=== PATIENT | female | born 1955 | race African-American/Black ===

== ENCOUNTER 2016-04-13 09:59 | Emergency (ER) | payer MEDICAID ==
[~2016-04-13 09:59] MED LIST: ASPI81 PO; GABA400 PO; IBUP800T23 PO; METH750T2 PO; METO25 PO; NITR.4 SL
[2016-04-13 10:08] VITALS: BP 163/100; PULSE 89; RESP 14; TEMP 97.8; O2SAT 100
[2016-04-13] MEDS ORDERED: KETOROLAC TROMETHAMINE 60 MG/2 ML (IM) VIAL IM ONE (13:00)
--- NOTE | 2016-04-13 13:58 | PD ---
HPI Chief Complaint: Chest Pain Time Seen by Provider: 12:32 Travel History International Travel<30 days: No Contact w/Intl Traveler<30days: No Traveled to known affect area: No History of Present Illness HPI The patient was seen and examined in the presence of the nurse. This patient complains of some pain in her chest wall. She aggravated it while pulling a couch. No shortness of breath or fever. Symptoms severity is mild. PFSH Past Medical History Arthritis: No Asthma: Yes Autoimmune Disease: No Blood Disorders: No Anxiety: Yes Depression: No Heart Rhythm Problems: No Cancer: No Cardiac Catheterization: Yes (2006) Cardiovascular Problems: Yes High Cholesterol: Yes Chemotherapy: No Chest Pain: Yes Congestive Heart Failure: No COPD: No Cerebrovascular Accident: No Coronary Artery Disease: Yes Diabetes: No Diminished Hearing: No Endocrine: No Gastrointestinal Disorders: Yes GERD: No Glaucoma: No Genitourinary: No Headaches: Yes Hepatitis: No Hiatal Hernia: No Hypertension: Yes Immune Disorder: No Kidney Stones: No Musculoskeletal: No Neurologic: Yes Psychiatric: No Reproductive: No Respiratory: Yes Immunizations Current: Yes Migraines: No Myocardial Infarction: Yes (X1) Radiation Therapy: No Renal Failure: No Seizures: No Sickle Cell Disease: No Sleep Apnea: Yes (CPAP) Thyroid Disease: No Ulcer: No ?: Not Menopausal: Yes : 2 Para: 2 Past Surgical History Abdominal Surgery: Yes (GASTRIC SLEEVE 2013) AICD: No Appendectomy: No Arteriovenous Shunt: No Cardiac Surgery: Yes (PT REPORTS TWO STENTS BEING PUT IN HER ARTERY) Section: Yes (X 2) Coronary Stent: Yes (X2) Ear Surgery: No Endocrine Surgery: No Eye Surgery: No Genitourinary Surgery: No Gynecologic Surgery: Yes (TWO C SECTION) Insulin Pump: No Joint Replacement: No Neurologic Surgery: No Oral Surgery: No Pacemaker: No Thoracic Surgery: No Other Surgery: Yes (GASTRIC SLEVE 05/2013) Family History Family Myocardial Infarction: Yes Social History Alcohol Use: No Tobacco Use: Yes (rarely) Substance Use: No Allergies-Medications (Allergen,Severity, Reaction): Coded Allergies: No Known Allergies (Verified , 04/09/14) Reported Meds & Prescriptions Reported Meds & Active Scripts Active No Active Prescriptions or Reported Medications Review of Systems HENT: No: Headaches Cardiovascular: Positive: Chest Pain or Discomfort Respiratory: No: Cough Physical Exam Narrative CARDIOVASCULAR: Regular rate and rhythm without murmur. Extremities showed no edema or varicosities. SKIN: Inspection shows no rash or ulcers. Palpation shows no induration or nodules. Musculoskeletal: Has reproducible chest wall tenderness just left of sternum Data Data Last Documented VS Vital Signs Date Time Temp Pulse Resp B/P Pulse Ox O2 Delivery O2 Flow Rate FiO2 04/13/16 12:15 15 04/13/16 10:08 97.8 89 163/100 100 Room Air Orders Electrocardiogram (04/13/16 10:11) Ketorolac Inj (Toradol Inj) (04/13/16 13:00) [facility] Medical Decision Making Medical Screen Exam Complete: Yes Emergency Medical Condition: Yes Medical Record Reviewed: Yes Differential Diagnosis Costochondritis, sternal contusion, strain, [place] Narrative Course I have reviewed the patient's electronic medical record. I reviewed her EKG which shows sinus rhythm but no ST elevation This is clear-cut readily reproducible chest wall pain Will not require further or inpatient evaluation I gave her Toradol injection Diagnosis Primary Impression: Acute chest wall pain Additional Instructions: The patient was advised to follow up with their physician and return if they worsen. Med/Other Pt SpecificInfo: Other Scripts No Active Prescriptions or Reported Meds Disposition: 01 DISCHARGE HOME Condition: Stable Dayron Joshi MD Apr 13, 2016 13:58
--- NOTE | 2016-04-13 14:14 | EKG ---
Date Performed: 04/13/2016 Time Performed: 10:16:57 PTAGE: 60 years EKG: Sinus rhythm WITH OCCASIONAL SUPRAVENTRICULAR PREMATURE COMPLEXES BORDERLINE ECG PREVIOUS TRACING : 01/30/2014 11.49 Since previous tracing, no significant change noted DOCTOR: Dionisio Branch Interpretating Date/Time 04/13/2016 14:06:26
[2016-04-13 14:20] VITALS: BP 158/92
== END 2016-04-13 14:24 | disposition home or self-care (01) ==
LOC: NEPB 09:59
DX: R07.89 Other chest pain (principal); I10 Essential (primary) hypertension; I25.2 Old myocardial infarction; J45.909 Unspecified asthma, uncomplicated; I25.10 Atherosclerotic heart disease of native coronary artery without angina pectoris
CPT/HCPCS: 93005; 96372; 99283; J1885

== ENCOUNTER 2016-07-14 19:44 | Emergency (ER) | payer MEDICAID ==
[~2016-07-14] VITALS: Ht 165.1 cm; Wt 109.0 kg
[2016-07-14 19:46] VITALS: BP 179/110; PULSE 71; RESP 15; TEMP 98.9; O2SAT 98
--- NOTE | 2016-07-14 23:04 | RADRPT ---
EXAM DATE/TIME: 07/14/2016 22:38 [facility] COMPARISON: No previous studies available for comparison. INDICATIONS : Right shoulder pain after fall down stairs today MEDICAL HISTORY : None. SURGICAL HISTORY : None. ENCOUNTER: Initial ACUITY: 1 day PAIN SCORE: 10/10 LOCATION: Right entire shoulder FINDINGS: Bones of the right shoulder are intact. Mild to moderate osteoarthritis seen at the acromioclavicular and glenohumeral joints. Radiographic appearance of the soft tissues within normal limits. CONCLUSION: Mild to moderate degenerative changes as above. No fracture or subluxation of the right shoulder. Dileep El MD on July 14, 2016 at 23:02 Board Certified Radiologist. This report was verified electronically.
--- NOTE | 2016-07-14 23:05 | RADRPT ---
EXAM DATE/TIME: 07/14/2016 22:41 [facility] COMPARISON: No previous studies available for comparison. INDICATIONS : Left knee pain after fall down stairs today MEDICAL HISTORY : None. SURGICAL HISTORY : None. ENCOUNTER: Initial ACUITY: 1 day PAIN SCORE: 10/10 LOCATION: Left entire knee FINDINGS: There is severe left knee posture arthritis, especially the lateral compartment. Probable joint marisela s. No large effusion. No fracture or subluxation demonstrated. CONCLUSION: Osteoarthritis without fracture. Dileep El MD on July 14, 2016 at 23:03 Board Certified Radiologist. This report was verified electronically.
[2016-07-14] MEDS ORDERED: oxyCODONE/ACETAMINOPHEN 5 MG/325 MG TAB PO ONE (23:30)
--- NOTE | 2016-07-14 23:35 | PD ---
HPI Chief Complaint: Fall Time Seen by Provider: 21:46 Travel History International Travel<30 days: No Contact w/Intl Traveler<30days: No Traveled to known affect area: No History of Present Illness HPI Patient is a 60-year-old female who presents to emergency room after a mechanical fall today. Patient reports that she was outside of her home and walking downstairs, reports that she tripped and fell onto her left knee. Patient reports that when she felt her left knee, her body twisted and she injured her right shoulder. Patient denies any trauma to the head or neck, denies loss of consciousness. Patient currently not on any anticoagulants at this time. Patient denies chest pain or abdominal pain, no other complaints. PFSH Past Medical History Hx Anticoagulant Therapy: Yes (ASA) Arthritis: No Asthma: Yes Autoimmune Disease: No Blood Disorders: No Anxiety: Yes Depression: No Heart Rhythm Problems: No Cancer: No Cardiac Catheterization: Yes (2006) Cardiovascular Problems: Yes (HTN, STENT X2) High Cholesterol: Yes Chemotherapy: No Chest Pain: Yes Congestive Heart Failure: No COPD: No Cerebrovascular Accident: No Coronary Artery Disease: Yes Diabetes: No Diminished Hearing: No Endocrine: No Gastrointestinal Disorders: Yes GERD: No Glaucoma: No Genitourinary: No Headaches: Yes Hepatitis: No Hiatal Hernia: No Hypertension: Yes Immune Disorder: No Kidney Stones: No Musculoskeletal: No Neurologic: Yes Psychiatric: No Reproductive: No Respiratory: Yes Immunizations Current: Yes Migraines: No Myocardial Infarction: Yes (X1) Radiation Therapy: No Renal Failure: No Seizures: No Sickle Cell Disease: No Sleep Apnea: Yes (CPAP) Thyroid Disease: No Ulcer: No Menopausal: Yes : 2 Para: 2 Past Surgical History Abdominal Surgery: Yes (GASTRIC SLEEVE 2013) AICD: No Appendectomy: No Arteriovenous Shunt: No Cardiac Surgery: Yes (PT REPORTS TWO STENTS BEING PUT IN HER ARTERY) Section: Yes (X 2) Coronary Stent: Yes (X2) Ear Surgery: No Endocrine Surgery: No Eye Surgery: No Genitourinary Surgery: No Gynecologic Surgery: Yes (TWO C SECTION) Insulin Pump: No Joint Replacement: No Neurologic Surgery: No Oral Surgery: No Pacemaker: No Thoracic Surgery: No Other Surgery: Yes (GASTRIC SLEVE 05/2013) Social History Alcohol Use: No Tobacco Use: Yes (rarely) Substance Use: No Allergies-Medications (Allergen,Severity, Reaction): Coded Allergies: No Known Allergies (Verified , 07/14/16) Reported Meds & Prescriptions Reported Meds & Active Scripts Active Ibuprofen 600 Mg Tab 600 Mg PO Q6H PRN Review of Systems General / Constitutional: No: Fever Eyes: No: Visual changes HENT: No: Headaches Cardiovascular: No: Chest Pain or Discomfort Respiratory: No: Shortness of Breath Gastrointestinal: No: Abdominal Pain Genitourinary: No: Dysuria Musculoskeletal: Positive: Pain (left knee pain, right shoulder pain) Skin: No Rash Neurologic: No: Weakness Psychiatric: No: Depression Endocrine: No: Polydipsia Hematologic/Lymphatic: No: Easy Bruising Physical Exam Narrative GENERAL: No acute distress, nontoxic SKIN: Focused skin assessment warm/dry. HEAD: Atraumatic. Normocephalic. EYES: Pupils equal and round. No scleral icterus. No injection or drainage. ENT: No nasal bleeding or discharge. Mucous membranes pink and moist. NECK: Trachea midline. No JVD. CARDIOVASCULAR: Regular rate and rhythm. No murmur appreciated. RESPIRATORY: No accessory muscle use. Clear to auscultation. Breath sounds equal bilaterally. GASTROINTESTINAL: Abdomen soft, non-tender, nondistended. Hepatic and splenic margins not palpable. MUSCULOSKELETAL: No obvious deformities. No clubbing. No cyanosis. No edema. Patient with pain with active range of motion to her left knee and right shoulder, no obvious deformities or open fractures. Pulses intact, neurovascularly intact. NEUROLOGICAL: Awake and alert. No obvious cranial nerve deficits. Motor grossly within normal limits. Normal speech. PSYCHIATRIC: Appropriate mood and affect; insight and judgment normal. Data Data Last Documented VS Vital Signs Date Time Temp Pulse Resp B/P Pulse Ox O2 Delivery O2 Flow Rate FiO2 07/14/16 19:46 98.9 71 15 179/110 98 Room Air Orders Shoulder, Complete (>2vws) (07/14/16 ) Knee, Complete (4vws) (07/14/16 ) Oxycodone-Acetamin 5-325 Mg (Percocet (07/14/16 23:30) ^ Knee Immobilizer (07/14/16 23:19) Crutches (07/14/16 23:19) MDM Medical Decision Making Medical Screen Exam Complete: Yes Emergency Medical Condition: Yes Interpretation(s) Vital Signs Date Time Temp Pulse Resp B/P Pulse Ox O2 Delivery O2 Flow Rate FiO2 07/14/16 19:46 98.9 71 15 179/110 98 Room Air Last Impressions Shoulder X-Ray 07/14/16 0000 Signed Impressions: Service Date/Time: Thursday, July 14, 2016 22:38 - CONCLUSION: Mild to moderate degenerative changes as above. No fracture or subluxation of the right shoulder. Dileep El MD Knee X-Ray 07/14/16 0000 Signed Impressions: Service Date/Time: Thursday, July 14, 2016 22:41 - CONCLUSION: Osteoarthritis without fracture. Dileep El MD Differential Diagnosis Shoulder fracture, shoulder sprain, knee fracture, knee dislocation, osteoarthritis, meniscal injury Narrative Course 60-year-old female who presents to emergency room with a mechanical fall, reports that when she fell, she fell onto her left knee and her right shoulder. No trauma to the head or neck, no loss of consciousness. Patient currently not on any anticoagulants. X-rays reviewed with patient, copies of x-rays given. Patient will follow-up with Ortho to return to emergency as needed. recommend rest /ice and elevation of LLE. Ortho follow up as outpatient. Diagnosis Primary Impression: Osteoarthritis Qualified Code: M19.111 - Post-traumatic osteoarthritis of right shoulder Additional Impression: degnerative changes to shoulder Referrals: Yaya Gamble MD Patient Instructions: General Instructions, Narcotic given in the ED Additional Instructions: Please follow-up with primary care doctor Return to the emergency room as needed Please follow-up with orthopedic surgery as needed Rest, ice, elevate lower extremity. Med/Other Pt SpecificInfo: Prescription(s) given Scripts Ibuprofen 600 Mg [id number] Mg PO Q6H PRN (Pain/Inflammation) #40 TAB Ref 0 Prov:Nellie Bloom DO 07/14/16 Disposition: 01 DISCHARGE HOME Condition: Stable Nellie Bloom DO Jul 14, 2016 23:35
[2016-07-14] MEDS ORDERED: IBUP-232 PO (23:38)
== END 2016-07-15 01:38 | disposition home or self-care (01) ==
LOC: NEPE 19:44
DX: M19.111 Post-traumatic osteoarthritis, right shoulder (principal); J45.909 Unspecified asthma, uncomplicated; F41.9 Anxiety disorder, unspecified; E78.00 Pure hypercholesterolemia, unspecified; I10 Essential (primary) hypertension; I25.2 Old myocardial infarction
CPT/HCPCS: 73030; 73564; 99283; E0113; L1810

== ENCOUNTER 2016-08-23 10:33 | Emergency (ER) | payer MEDICAID ==
[~2016-08-23 10:33] MED LIST changes: -ASPI81 PO; -GABA400 PO; +IBUP-232 PO; -IBUP800T23 PO; -METH750T2 PO; -METO25 PO; -NITR.4 SL
[2016-08-23 10:35] VITALS: BP 166/88; PULSE 61; RESP 19; TEMP 98.7; O2SAT 99
[2016-08-23] MEDS ORDERED: SERT-132 PO (11:32)
[2016-08-23] MEDS ORDERED: GABA600T PO (11:32)
[2016-08-23] MEDS ORDERED: ATOR40TA16 PO (11:32)
[2016-08-23] MEDS ORDERED: METO25TA3 PO (11:32)
[2016-08-23] MEDS ORDERED: IBUP800T23 PO (11:32)
[2016-08-23] MEDS ORDERED: OMEP20TA PO (11:32)
[2016-08-23] MEDS ORDERED: LOPERAMIDE HCL 2 MG CAP PO ONE (11:45)
--- NOTE | 2016-08-23 11:49 | PD ---
HPI Chief Complaint: Pain: Acute or Chronic Time Seen by Provider: 10:49 Travel History International Travel<30 days: No Contact w/Intl Traveler<30days: No Traveled to known affect area: No History of Present Illness HPI Is a 60-year-old woman who presents to the emergency department complaining of chills malaise weakness and some slight cough ongoing for the past day or so. She's also had loose brown watery stools associated with this. She had nausea but no vomiting. No significant fevers. No abdominal pain. No sick contacts. She otherwise has been feeling well. History Past Medical History Narrative Medical CAD History of gastric sleeve and 2014 Neuropathy Menopausal: Yes : 2 Para: 2 Social History Alcohol Use: No Tobacco Use: Yes (rarely) Allergies-Medications (Allergen,Severity, Reaction): Coded Allergies: No Known Allergies (Verified , 07/14/16) Reported Meds & Prescriptions Reported Meds & Active Scripts Active Reported Gabapentin 600 Mg Tab 600 Mg PO BID Metoprolol Tartrate 25 Mg Tab 25 Mg PO BID Atorvastatin (Atorvastatin Calcium) 40 Mg Tab 40 Mg PO HS Sertraline (Sertraline HCl) 50 Mg Tab 50 Mg PO DAILY Ibuprofen 800 Mg Tab 800 Mg PO TID PRN Omeprazole 20 Mg Tab 20 Mg PO DAILY Review of Systems Except as stated in HPI: all other systems reviewed are Neg Physical Exam Narrative GENERAL: Well-appearing 60-year-old woman, no acute distress. SKIN: Focused skin assessment warm/dry. HEAD: Atraumatic. Normocephalic. EYES: Pupils equal and round. No scleral icterus. No injection or drainage. ENT: No nasal bleeding or discharge. Mucous membranes pink and moist. TMs normal. Throat is normal. NECK: Trachea midline. No significant adenopathy. CARDIOVASCULAR: Regular rate and rhythm. No murmur appreciated. RESPIRATORY: No accessory muscle use. Clear to auscultation. Breath sounds equal bilaterally. GASTROINTESTINAL: Abdomen soft, non-tender, nondistended. Hepatic and splenic margins not palpable. MUSCULOSKELETAL: No obvious deformities. Data Data Last Documented VS Vital Signs Date Time Temp Pulse Resp B/P Pulse Ox O2 Delivery O2 Flow Rate FiO2 08/23/16 10:42 20 08/23/16 10:35 98.7 61 166/88 99 Orders Loperamide (Imodium) (5/22/17 11:45) [facility] Medical Decision Making Medical Screen Exam Complete: Yes Emergency Medical Condition: Yes Differential Diagnosis URI, viral syndrome, gastritis, enteritis, pneumonia, ACS, other Narrative Course Medical decision-making zacarias cordero is a well 60-year-old woman with viral syndrome. She looks well. She is not dehydrated. I'll see evidence of pneumonia. She does not like she's having a heart attack although she did couple twinges of chest pain at some point in the past. Recommend supportive treatment. Multiple previous ED visits. Diagnosis Primary Impression: Viral syndrome Additional Instructions: Take Imodium if needed for diarrhea. Take Tylenol or Motrin if needed for muscle aches or pains. Drink plenty of fluids and stay well-hydrated. All with her primary doctor for not completely well in the next 3-5 days. Return to the emergency department for any new or worsening symptoms. Med/Other Pt SpecificInfo: Prescription(s) given Disposition: 01 DISCHARGE HOME Condition: Stable Khoa Cheng MD August 23, 2016 11:49
[2016-08-23 11:52] VITALS: BP 149/80
== END 2016-08-23 12:01 | disposition home or self-care (01) ==
LOC: NEPD 10:33
DX: B34.9 Viral infection, unspecified (principal); R68.83 Chills (without fever); R53.81 Other malaise; R53.1 Weakness; R05 Cough; R19.7 Diarrhea, unspecified; R11.0 Nausea; Z72.0 Tobacco use; Z86.79 Personal history of other diseases of the circulatory system; Z87.19 Personal history of other diseases of the digestive system; Z86.69 Personal history of other diseases of the nervous system and sense organs
CPT/HCPCS: 99282

== ENCOUNTER 2016-09-13 19:14 | Emergency (ER) | payer MEDICAID ==
[~2016-09-13] VITALS: Ht 165.1 cm; Wt 106.0 kg
[~2016-09-13 19:14] MED LIST changes: +ATOR40TA16 PO; +GABA600T PO; -IBUP-232 PO; +IBUP800T23 PO; +METO25TA3 PO; +OMEP20TA PO; +SERT-132 PO
[2016-09-13 19:16] VITALS: BP 129/94; PULSE 73; RESP 16; TEMP 98.9; O2SAT 98
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
[2016-09-13] MEDS ORDERED: MELO-1 PO (22:22)
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
== END 2016-09-13 22:28 | disposition home or self-care (01) ==
LOC: NEPD 19:14
DX: M79.675 Pain in left toe(s) (principal)
CPT/HCPCS: 73630; 99283; L3260

== ENCOUNTER 2016-11-08 11:53 | Emergency (ER) | payer MEDICAID ==
[~2016-11-08] VITALS: Ht 165.1 cm; Wt 104.5 kg
[~2016-11-08 11:53] MED LIST changes: +MELO-1 PO
[2016-11-08 11:56] VITALS: BP 180/100; PULSE 64; RESP 20; TEMP 98.4; O2SAT 99
--- NOTE | 2016-11-08 12:01 | PD ---
Physical Exam Date Seen by Provider: Nov 08, 2016 Time Seen by Provider: 11:59 Narrative 60 y/o female presents s/p slip and fall at home. C/o low back pain and right arm pain. Denies LOC or head injury. Pain 11/11. Vital signs reviewed. Patient stable. Awaiting Bed placement. Data Data Last Documented VS Vital Signs Date Time Temp Pulse Resp B/P Pulse Ox O2 Delivery O2 Flow Rate FiO2 11/08/16 11:56 98.4 64 20 180/100 99 MDM Medical Record Reviewed: Yes Supervised Visit with MICHELLE: Yes Condition: Stable Andrew Espinal Nov 08, 2016 12:01
--- NOTE | 2016-11-08 12:55 | PD ---
HPI Chief Complaint: Back/ Neck Pain or Injury Time Seen by Provider: 12:55 Travel History International Travel<30 days: No Contact w/Intl Traveler<30days: No Traveled to known affect area: No History of Present Illness HPI 60-year-old female presents to the emergency department with complaint of right shoulder pain and lower back pain after slipping on a wet floor while mopping today and following and landing on her buttocks and "kind of "hitting her right shoulder. Denies hitting her head or loss of consciousness. Denies anticoagulants. Denies nausea, vomiting. Denies chest pain, shortness breath, abdominal pain. Denies neck pain. Denies other extremity pain. Denies paresthesias, loss of sensation, decreased range of motion, decreased strength all extremities. Has been ambulatory after the fall and denies change in gait. Has not taken any medications or tried any treatments to alleviate her symptoms. Symptoms are mild in severity. No known allergies. Has no other medical complaints. No other modifying factors or associated signs and symptoms. PFSH Past Medical History Hx Anticoagulant Therapy: Yes (ASA) Arthritis: No Asthma: Yes Autoimmune Disease: No Blood Disorders: No Anxiety: Yes Depression: No Heart Rhythm Problems: No Cancer: No Cardiac Catheterization: Yes (2006) Cardiovascular Problems: Yes (HTN, STENT X2) High Cholesterol: Yes Chemotherapy: No Chest Pain: Yes Congestive Heart Failure: No COPD: No Cerebrovascular Accident: No Coronary Artery Disease: Yes Diabetes: No Diminished Hearing: No Endocrine: No Gastrointestinal Disorders: Yes GERD: No Glaucoma: No Genitourinary: No Headaches: Yes Hepatitis: No Hiatal Hernia: No Heparin Induced Thrombocytopen: No Hypertension: Yes Immune Disorder: No Kidney Stones: No Musculoskeletal: No Neurologic: Yes Psychiatric: No Reproductive: No Respiratory: Yes Immunizations Current: Yes Migraines: No Myocardial Infarction: Yes (X1) Radiation Therapy: No Renal Failure: No Seizures: No Sickle Cell Disease: No Sleep Apnea: Yes (CPAP) Thyroid Disease: No Ulcer: No ?: Not Menopausal: Yes : 2 Para: 2 Past Surgical History Abdominal Surgery: Yes (GASTRIC SLEEVE 2013) AICD: No Appendectomy: No Arteriovenous Shunt: No Cardiac Surgery: Yes (PT REPORTS TWO STENTS BEING PUT IN HER ARTERY) Section: Yes (X 2) Coronary Stent: Yes (X2) Ear Surgery: No Endocrine Surgery: No Eye Surgery: No Genitourinary Surgery: No Gynecologic Surgery: Yes (TWO C SECTION) Insulin Pump: No Joint Replacement: No Neurologic Surgery: No Oral Surgery: No Pacemaker: No Thoracic Surgery: No Other Surgery: Yes (GASTRIC SLEVE 05/2013) Family History Family Myocardial Infarction: Yes Social History Alcohol Use: No Tobacco Use: Yes (rarely) Substance Use: No Allergies-Medications (Allergen,Severity, Reaction): Coded Allergies: No Known Allergies (Verified , 09/13/16) Reported Meds & Prescriptions Reported Meds & Active Scripts Active Ibuprofen 600 Mg Tab 600 Mg PO Q6H PRN Robaxin (Methocarbamol) 500 Mg Tab 500 Mg PO QID PRN Reported Gabapentin 600 Mg Tab 600 Mg PO BID Metoprolol Tartrate 25 Mg Tab 25 Mg PO BID Atorvastatin (Atorvastatin Calcium) 40 Mg Tab 40 Mg PO HS Sertraline (Sertraline HCl) 50 Mg Tab 50 Mg PO DAILY Ibuprofen 800 Mg Tab 800 Mg PO TID PRN Review of Systems Except as stated in HPI: all other systems reviewed are Neg Physical Exam Narrative GENERAL: Well-nourished, well-developed female patient, in no acute distress SKIN: Warm and dry. HEAD: Atraumatic. Normocephalic. No facial or scalp abrasions or lacerations noted. No facial droop noted. Tongue midline. EYES: Pupils equal and round at 3 mm with brisk reaction. No scleral icterus. No injection or drainage. No raccoon eyes. ENT: Mucosa pink and moist. No erythema or exudates. No uvular edema. No uvular , palatal, or tonsillar deviation. Airway patent. Nares without nasal blood, purulent drainage or septal hematoma. No rhinorrhea. EARS: Bilateral pinnae and external canals appear within normal limits. Bilateral tympanic membranes without erythema, dullness, hemotympanum or perforation. No otorrhea. No ventura signs. NECK: Moving freely. Trachea midline. No lymphadenopathy. Active rotation of the neck greater than 45 left and right. No midline point tenderness on palpation of the cervical spine. No obvious deformities. CHEST: No retractions or use of accessory muscles. CARDIOVASCULAR: Regular rate and rhythm. No murmur appreciated. RESPIRATORY: No accessory muscle use. Clear to auscultation. Breath sounds equal bilaterally. GASTROINTESTINAL: Obese. MUSCULOSKELETAL: Right shoulder without erythema, edema, ecchymosis; with full range of motion; greater than 45 abduction; shoulders equal; no obvious deformity; 5/5 strength; 2+ radial pulses and sensory intact. Right upper extremity is supple and non-tense. No obvious deformities. No clubbing. No cyanosis. No edema. BACK: No midline Point tenderness on palpation of the lumbar or thoracic spine. Reproducible tenderness to bilateral iliosacral areas of the lower back. No obvious deformities. Patient sitting up in bed at 90. NEUROLOGICAL: Awake and alert. Oriented 3. No obvious cranial nerve deficits. Motor grossly within normal limits. Normal speech. Moves all extremities. 5/5 strength to all extremities. Sensory intact. PSYCHIATRIC: Appropriate mood and affect; insight and judgment normal. Data Data Last Documented VS Vital Signs Date Time Temp Pulse Resp B/P Pulse Ox O2 Delivery O2 Flow Rate FiO2 11/08/16 11:56 98.4 64 20 180/100 99 Orders Methocarbamol (Robaxin) (11/08/16 13:00) Ibuprofen (Motrin) (11/08/16 13:00) [facility] Medical Decision Making Medical Screen Exam Complete: Yes Emergency Medical Condition: Yes Medical Record Reviewed: Yes Differential Diagnosis Fall, low back strain, right shoulder injury, shoulder contusion, shoulder strain; less likely shoulder fracture Narrative Course 60-year-old female physical exam consistent with low back strain and right shoulder injury after a mechanical slip and fall today. She denies hitting her head or loss of consciousness. Denies nausea, vomiting. On physical exam the patient is without raccoon eyes, ventura signs, rhinorrhea, or hemotympanum. I do not suspect open or depressed skull fracture, and the patient has no signs of basilar skull fracture. Denies neck pain. [place] CT Head Injury Rule suggests a head CT is not necessary for this patient and clears the patient for head injury without imaging. [place] C-Spine Rule suggests the C-Spine can be cleared clinically of fracture, and imaging is not required. There is no midline point tenderness on palpation of the cervical spine. The patient is able to actively rotate the neck 45 left and right. The patient is sitting up in bed at 90. The patient is ambulatory. I do not suspect fracture or dislocation of the right shoulder and felt that imaging is not necessary at this time. Patient is no midline point tenderness on pronation of the lumbar spine. Robaxin and ibuprofen administered in the ER. Robaxin and ibuprofen prescribed for home. Instructed patient to follow up with primary care provider. Patient verbalizes understanding and agreement with treatment plan. Patient is medically cleared and stable for discharge. Discussed reasons to return to the emergency department. Patient agrees with treatment plan. The patients vital signs are stable and the patient is stable for outpatient follow- up and treatment. Patient discharged home, stable and in no acute distress. Diagnosis Primary Impression: Fall Qualified Code: W19.XXXA - Fall, initial encounter Additional Impressions: Low back strain Qualified Code: S39.012A - Strain of lumbar region, initial encounter Right shoulder injury Qualified Code: S49.91XA - Injury of right shoulder, initial encounter Referrals: Primary Care Physician Patient Instructions: Fall Prevention for Older Adults (ED), General Instructions, Low Back Strain (ED), Shoulder Sprain (ED) Additional Instructions: Tylenol or ibuprofen as directed and as needed for pain Robaxin as prescribed and as needed for muscle spasms Heating pad and/or ice to affected area to reduce pain Avoid aggravating activities; increase activity as tolerated Follow-up with primary care provider Return to emergency department immediately with worsening of symptoms Med/Other Pt SpecificInfo: Prescription(s) given Scripts Ibuprofen 600 Mg [id number] Mg PO Q6H PRN (PAIN) #30 TAB Ref 0 Prov:Colette Adair 11/08/16 Methocarbamol (Robaxin)500 Mg [id number] Mg PO QID PRN (MUSCLE SPASM) #30 TAB Ref 0 Prov:Colette Adair 11/08/16 Disposition: 01 DISCHARGE HOME Condition: Stable Colette Adair Nov 08, 2016 12:55
[2016-11-08] MEDS ORDERED: IBUP-232 PO (12:59)
[2016-11-08] MEDS ORDERED: ROBA500T PO (12:59)
[2016-11-08] MEDS ORDERED: IBUPROFEN 600 MG TAB PO ONE (13:00)
[2016-11-08] MEDS ORDERED: METHOCARBAMOL 500 MG TAB PO ONE (13:00)
== END 2016-11-08 13:21 | disposition home or self-care (01) ==
LOC: NEPK 11:53
DX: S39.012A Strain of muscle, fascia and tendon of lower back, initial encounter (principal); S49.91XA Unspecified injury of right shoulder and upper arm, initial encounter; W19.XXXA Unspecified fall, initial encounter; Y92.009 Unspecified place in unspecified non-institutional (private) residence as the place of occurrence of the external cause; I25.10 Atherosclerotic heart disease of native coronary artery without angina pectoris; I10 Essential (primary) hypertension; Z95.5 Presence of coronary angioplasty implant and graft; J45.909 Unspecified asthma, uncomplicated; Z79.82 Long term (current) use of aspirin
CPT/HCPCS: 99283

== ENCOUNTER 2017-09-03 10:41 | Emergency (ER) | payer MEDICAID ==
[~2017-09-03] VITALS: Ht 165.1 cm; Wt 100.0 kg
[~2017-09-03 10:41] MED LIST changes: +IBUP-232 PO; +IBUP1TAB7 PO; -IBUP800T23 PO; -MELO-1 PO; -OMEP20TA PO; +ROBA500T PO
[2017-09-03 10:46] VITALS: BP 133/79; PULSE 70; RESP 18; TEMP 98.2; O2SAT 100
[2017-09-03 10:56] VITALS: BP 142/81; PULSE 72; RESP 15; TEMP 98.1; O2SAT 98
--- NOTE | 2017-09-03 11:15 | PD ---
HPI Chief Complaint: Medical Clearance Time Seen by Provider: 11:06 Travel History International Travel<30 days: No Contact w/Intl Traveler<30days: No History of Present Illness HPI Patient was planning to come into the emergency department to evaluate a rash that she has had started on the right hand and now it has appears to be transferring to her left hand. It is dry, scaly and very itchy. Per patient she does not have any previous history of this. This particular rash has been developing on her right hand over the past week or so, and now has a single lesion on her left dorsum of her hand, not involving the palms. Patient denies any alleviating or aggravating factors. Patient denies any associated factors such as fever, runny nose/cough/sore throat/, dysuria/urgency/frequency/, abdominal pain, chest pain, back pain, flank pain. No nondrug allergies Past medical history significant for corrective lenses, [place] with stents, hypercholesterolemia, hypertension, asthma, sleep apnea on CPAP, gastric sleeve previous cocaine history use PFSH Past Medical History Hx Anticoagulant Therapy: Yes (ASA) Arthritis: No Asthma: Yes Autoimmune Disease: No Blood Disorders: No Anxiety: Yes Depression: No Heart Rhythm Problems: No Cancer: No Cardiac Catheterization: Yes (2006) Cardiovascular Problems: Yes High Cholesterol: Yes Chemotherapy: No Chest Pain: Yes Congestive Heart Failure: No COPD: No Cerebrovascular Accident: No Coronary Artery Disease: Yes Diabetes: Yes Patient Takes Glucophage: No Diminished Hearing: No Endocrine: No Gastrointestinal Disorders: Yes GERD: No Glaucoma: No Genitourinary: No Headaches: Yes Hepatitis: No Hiatal Hernia: No Heparin Induced Thrombocytopen: No Hypertension: Yes Immune Disorder: No Kidney Stones: No Musculoskeletal: No Neurologic: Yes Psychiatric: No Reproductive: No Respiratory: Yes Immunizations Current: Yes Migraines: No Myocardial Infarction: Yes (X1) Radiation Therapy: No Renal Failure: No Seizures: No Sickle Cell Disease: No Sleep Apnea: Yes (CPAP) Thyroid Disease: No Ulcer: No Tetanus Vaccination: > 5 Years Influenza Vaccination: No Menopausal: Yes : 2 Para: 2 Past Surgical History Abdominal Surgery: Yes (GASTRIC SLEEVE 2013) AICD: No Appendectomy: No Arteriovenous Shunt: No Cardiac Surgery: Yes (PT REPORTS TWO STENTS BEING PUT IN HER ARTERY) Section: Yes (X 2) Coronary Stent: Yes (X2) Ear Surgery: No Endocrine Surgery: No Eye Surgery: No Genitourinary Surgery: No Gynecologic Surgery: Yes (TWO C SECTION) Insulin Pump: No Joint Replacement: No Neurologic Surgery: No Oral Surgery: No Pacemaker: No Thoracic Surgery: No Other Surgery: Yes (GASTRIC SLEVE 05/2013) Family History Family Myocardial Infarction: Yes Social History Alcohol Use: No Tobacco Use: Yes (rarely) Substance Use: No Allergies-Medications (Allergen,Severity, Reaction): Coded Allergies: No Known Allergies (Verified Adverse Reaction, Unknown, 09/03/17) Reported Meds & Prescriptions Reported Meds & Active Scripts Active Ibuprofen 600 Mg Tab 600 Mg PO Q6H PRN Robaxin (Methocarbamol) 500 Mg Tab 500 Mg PO QID PRN Reported Gabapentin 600 Mg Tab 600 Mg PO BID Metoprolol Tartrate 25 Mg Tab 25 Mg PO BID Atorvastatin (Atorvastatin Calcium) 40 Mg Tab 40 Mg PO HS Sertraline (Sertraline HCl) 50 Mg Tab 50 Mg PO DAILY Ibuprofen 800 Mg Tab 800 Mg PO TID PRN Review of Systems General / Constitutional: No: Fever Eyes: No: Visual changes HENT: No: Headaches Cardiovascular: No: Chest Pain or Discomfort Respiratory: No: Shortness of Breath Gastrointestinal: No: Abdominal Pain Genitourinary: No: Dysuria Musculoskeletal: Positive: Pain (Left knee pain) Skin: Positive Rash, Positive Itching Neurologic: No: Weakness Psychiatric: No: Depression Endocrine: No: Polydipsia Hematologic/Lymphatic: No: Easy Bruising Physical Exam Narrative GENERAL: SKIN: Warm and dry. Dorsum of right hand is diffuse dry chronically raised plaque-like lesion extending onto the proximal second third and fourth digit HEAD: Atraumatic. Normocephalic. EYES: Pupils equal and round. No scleral icterus. No injection or drainage. ENT: No nasal bleeding or discharge. Mucous membranes pink and moist. NECK: Trachea midline. No JVD. CARDIOVASCULAR: Regular rate and rhythm. RESPIRATORY: No accessory muscle use. Clear to auscultation. Breath sounds equal bilaterally. GASTROINTESTINAL: Abdomen soft, non-tender, nondistended. MUSCULOSKELETAL: Extremities without clubbing, cyanosis, or edema. No obvious deformities. NEUROLOGICAL: Awake and alert. No obvious cranial nerve deficits. Motor grossly within normal limits. Five out of 5 muscle strength in the arms and legs. Normal speech. PSYCHIATRIC: Appropriate mood and affect; insight and judgment normal. Data Data Last Documented VS Vital Signs Date Time Temp Pulse Resp B/P (MAP) Pulse Ox O2 Delivery O2 Flow Rate FiO2 09/03/17 10:56 98.1 72 15 142/81 (101) 98 Room Air Orders Orders Knee, Complete (4vws) (09/03/17 ) MDM Medical Decision Making Medical Screen Exam Complete: Yes Emergency Medical Condition: Yes Medical Record Reviewed: Yes Differential Diagnosis Cellulitis versus abscess versus psoriasis versus tinea corporis versus left knee fracture/contusion/dislocation Narrative Course X-ray of left knee is negative for any fracture or dislocation Diagnosis Primary Impression: Left knee contusion Additional Impression: Tinea corporis Patient Instructions: General Instructions, Tinea Corporis (ED) Scripts Nystatin-Triamcinolone (Nystatin-Triamcinolone) 100,000-0.1 Unit/Gm Oint 1 APPLIC TOPICAL Q12HR for Infection, #60 GM 2 Refills Prov: Agustin Ching MD 09/03/17 Disposition: 01 DISCHARGE HOME Condition: Stable Agustin Ching MD Sep 03, 2017 11:15
--- NOTE | 2017-09-03 11:34 | RADRPT ---
EXAM DATE: 09/03/2017 11:28 AM EDT AGE/SEX: 61 years / Female INDICATIONS: Patient fell and complains of left knee pain. CLINICAL DATA: This is the patient's initial encounter. Patient reports that signs and symptoms have been present for 1 day and indicates a pain score of 6/10. MEDICAL/SURGICAL HISTORY: None. None. [place] [facility] [place] 07/14/2016. . FINDINGS: Multiple views of the left knee demonstrate stable severe degenerative change within the lateral join t line with severe joint line narrowing and bony productive changes, subchondral sclerosis and cyst f ormation. Lesser degenerative changes are seen within the medial compartment of the knee and within t he patellofemoral compartment. The bones are mildly osteopenic. No evidence of joint effusion. CONCLUSION: Stable severe degenerative changes as noted above. No evidence of acute fracture. Electronically signed by: Gabriella Harvey MD 09/03/2017 11:33 AM EDT
[2017-09-03] MEDS ORDERED: NYST1OIN TOPICAL (11:46)
== END 2017-09-03 13:29 | disposition home or self-care (01) ==
LOC: NEPE 10:41
DX: S80.02XA Contusion of left knee, initial encounter (principal); B35.4 Tinea corporis; E78.00 Pure hypercholesterolemia, unspecified; I10 Essential (primary) hypertension; W19.XXXA Unspecified fall, initial encounter; Z72.0 Tobacco use
CPT/HCPCS: 73564; 99283